=== PATIENT | male | born 1995 | race American Indian/Alaskan Native ===

== ENCOUNTER 2021-07-25 23:16 | Emergency (ER) | payer OTHER ==
[2021-07-25] MEDS ORDERED: Lidocaine 1% with EPINEPHrine 1:100,000 20 ML MDV INFILT ONE (23:17)
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
[2021-07-25] MEDS ORDERED: Sodium Chloride 0.9% 10 ML Syringe FLUSH PRN (23:31)
[2021-07-25] MEDS ORDERED: Sodium Chloride 0.9% 1,000 ML IV ONE (23:32)
[2021-07-25] MEDS ORDERED: Sodium Chloride 0.9% 1,000 ML IV SCH (23:45)
[2021-07-25] MEDS ORDERED: Iopamidol 755 Mg/ML 100 ML Bottle IV ONE (23:46)
[2021-07-27] MEDS ORDERED: Bacitracin/Neomycin/Polymyxin B Oint 0.9 GM U/D Packet TOP ONE (02:30)
== END 2021-07-26 02:50 | disposition home or self-care (01) ==
LOC: FB.ED 23:16
DX: S06.0X1A Concussion with loss of consciousness of 30 minutes or less, initial encounter (principal); S01.01XA Laceration without foreign body of scalp, initial encounter; S80.812A Abrasion, left lower leg, initial encounter; S80.811A Abrasion, right lower leg, initial encounter; R79.89 Other specified abnormal findings of blood chemistry; Z72.0 Tobacco use; V29.9XXA Motorcycle rider (driver) (passenger) injured in unspecified traffic accident, initial encounter; Y93.55 Activity, bike riding
CPT/HCPCS: 12004; 36415; 70450; 71045; 71260; 72125; 74177; 80053; 80307; 81001; 83690; 83735; 85025; 85610; 85730; 99285; J7030; Q9967